=== PATIENT | male | born 1995 | race Caucasian/White ===

== ENCOUNTER 2019-01-01 16:16 | Emergency (ER) | payer SELFPAY ==
[~2019-01-01] VITALS: Ht 177.8 cm; Wt 81.6 kg
[2019-01-01] MEDS: NS IV 1000 ML 1,000 ML IV SCH ×4 (16:55→18:23)
[2019-01-01] MEDS ORDERED: inSUlin (REGULAR) HUMAN 1 UNIT/0.01 ML (CHARGE PER UNIT) SC ONE (17:00)
--- NOTE | 2019-01-01 17:01 | ED General ---
General Chief Complaint: Glucose Problems Stated Complaint: HIGH BLOOD SUGAR Nursing Triage Note: Patient c/o high glucose level. Reported that his grandparents were checking their blood sugar so he thought he would check his and his reading was in the 500s. He denies any symptoms or pain at this time. Nursing Sepsis Screen: No Definite Risk Source of Information: Patient (NELLIE CUEVAS MD) History of Present Illness Date Seen by Provider: Jan 01, 2019 Time Seen by Provider: 16:30 Initial Comments Patient is alcoholic and drinks shots of Everclear daily. Estimates a gallon but this seems high. Nevertheless, past few weeks he has had fatigue, low energy, polyuria, polydypsia, and progressive weakness. He does not see physician and takes no medications. He has had counseling for alcoholism and has finally 'just accepted' that this is his lot. His mother had diabetes type two and also was alcoholic. His random blood sugar is 490. I have discussed options with him. He has insurance but declines admission. I have told him that I will try to replete fluids and do basic labs, but that he will need to minimally follow-up in outpatient clinics to properly manage this disease. He says he already is familiar with the complications of diabetes seen in his mother. Severity: Moderate Modifying Factors: improves with Other Associated Systoms: Loss of Appetite, Malaise, Weakness (NELLIE SANTIZO MD) Allergies and Home Medications Allergies Coded Allergies: No Known Drug Allergies (Unverified , 01/01/19) Patient Home Medication List Home Medication List Reviewed: Yes (ARCENIO NICE DO) Review of Systems Review of Systems Constitutional: malaise, weakness, weight loss EENTM: see HPI, blurred vision Respiratory: no symptoms reported; No short of breath, No stridor Cardiovascular: no symptoms reported Gastrointestinal: no symptoms reported Genitourinary: frequency Musculoskeletal: see HPI Skin: no symptoms reported Psychiatric/Neurological: See HPI, Emotional Problems, Weakness, Other Hematologic/Lymphatic: No Symptoms Reported Immunological/Allergic: no symptoms reported (NELLIE CUEVAS MD) All Other Systems Reviewed Negative Unless Noted: Yes (NELLIE CUEVAS MD) Past [id number]-Jufxme Hx Patient Social History Recent Foreign Travel: No Contact w/Someone Who Travel: No Recent Infectious Disease Expo: No (NELLIE CUEVAS MD) Physical Exam Vital Signs Vital Signs - First Documented 01/01/19 16:20 Temp 98.7 Pulse 116 Resp 18 B/P (MAP) 125/87 (100) Pulse Ox 97 O2 Delivery Room Air (ARCENIO NICE ) Vital Signs Capillary Refill : Less Than 3 Seconds (NELLIE CUEVAS MD) Height, Weight, BMI Height: 5'10.00" Weight: 180lbs. oz. [id number]; BMI Method:Stated General Appearance: No Apparent Distress HEENT: PERRL/EOMI, Moist Mucous Membranes Neck: Full Range of Motion, Normal Inspection Respiratory: No Accessory Muscle Use, No Respiratory Distress Cardiovascular: Regular Rate, Rhythm, No Edema Extremity: Normal Range of Motion, Non Tender Neurologic/Psychiatric: Normal Mood/Affect Skin: Normal Color, Warm/Dry Lymphatic: No Adenopathy (NELLIE CUEVAS MD) General Appearance: No Apparent Distress, WD/WN Respiratory: No Respiratory Distress Cardiovascular: Regular Rate, Rhythm, Tachycardia Rectal: Deferred Neurologic/Psychiatric: Alert, Oriented x3, No Motor/Sensory Deficits Skin: Warm/Dry (ARCENIO NICE DO) Progress/Results/Core Measures Suspected Sepsis Recent Fever Within 48 Hours: No Infection Criteria Present: None New/Unexplained Altered Menta: No Sepsis Screen: No Definite Risk SIRS Temperature:98.7 Pulse: 116 Respiratory Rate: 18 Blood Pressure 125 /87 Mean: 100 (NELLIE CUEVAS MD) Results/Orders Lab Results Laboratory Tests Test 01/01/19 16:00 01/01/19 16:24 01/01/19 16:40 01/01/19 18:18 Range/Units Urine Color YELLOW Urine Clarity CLEAR Urine pH 6.0 5-9 Urine Specific [place] <=1.005 1.016-1.022 Urine Protein NEGATIVE NEGATIVE Urine Glucose (UA) 3+ H NEGATIVE Urine Ketones 1+ H NEGATIVE Urine Nitrite NEGATIVE NEGATIVE Urine Bilirubin NEGATIVE NEGATIVE Urine Urobilinogen 0.2 NORMAL MG/DL Urine Leukocyte Esterase NEGATIVE NEGATIVE Urine RBC (Auto) NEGATIVE NEGATIVE Urine RBC NONE /HPF Urine WBC 0-2 /HPF Urine Squamous Epithelial Cells NONE /HPF Urine Crystals NONE /LPF Urine Bacteria NEGATIVE /HPF Urine Casts NONE /LPF Urine Mucus NEGATIVE /LPF Urine Culture Indicated NO Urine Opiates Screen NEGATIVE NEGATIVE Urine Oxycodone Screen NEGATIVE NEGATIVE Urine Methadone Screen NEGATIVE NEGATIVE Urine Propoxyphene Screen NEGATIVE NEGATIVE Urine Barbiturates Screen NEGATIVE NEGATIVE Ur Tricyclic Antidepressants Screen NEGATIVE NEGATIVE Urine Phencyclidine Screen NEGATIVE NEGATIVE Urine Amphetamines Screen NEGATIVE NEGATIVE Urine Methamphetamines Screen NEGATIVE NEGATIVE Urine Benzodiazepines Screen NEGATIVE NEGATIVE Urine Cocaine Screen NEGATIVE NEGATIVE Urine Cannabinoids Screen NEGATIVE NEGATIVE Glucometer 489 *H 464 *H 70-110 MG/DL White Blood Count 7.9 4.3-11.0 10^3/uL Red Blood Count 5.26 4.35-5.85 10^6/uL Hemoglobin 16.8 13.3-17.7 G/DL Hematocrit 45 40-54 % Mean Corpuscular Volume 86 80-99 FL Mean Corpuscular Hemoglobin 32 25-34 PG Mean Corpuscular Hemoglobin Concent 37 H 32-36 G/DL Red Cell Distribution Width 11.5 10.0-14.5 % Platelet Count 340 130-400 10^3/uL Mean Platelet Volume 10.4 7.4-10.4 FL Neutrophils (%) (Auto) 65 42-75 % Lymphocytes (%) (Auto) 27 12-44 % Monocytes (%) (Auto) 5 0-12 % Eosinophils (%) (Auto) 2 0-10 % Basophils (%) (Auto) 1 0-10 % Neutrophils # (Auto) 5.1 1.8-7.8 X 10^3 Lymphocytes # (Auto) 2.2 1.0-4.0 X 10^3 Monocytes # (Auto) 0.4 0.0-1.0 X 10^3 Eosinophils # (Auto) 0.2 0.0-0.3 10^3/uL Basophils # (Auto) 0.1 0.0-0.1 10^3/uL Neutrophils % (Manual) 67 % Lymphocytes % (Manual) 23 % Monocytes % (Manual) 3 % Eosinophils % (Manual) 1 % Band Neutrophils 3 % Atypical Lymphocytes 3 % Blood Morphology Comment NORMAL Sodium Level 133 L 135-145 MMOL/L Potassium Level 3.5 L 3.6-5.0 MMOL/L Chloride Level 90 L 98-107 MMOL/L Carbon Dioxide Level 20 L 21-32 MMOL/L Anion Gap 23 H 5-14 MMOL/L Blood Urea Nitrogen 6 L 7-18 MG/DL Creatinine 0.62 0.60-1.30 MG/DL Estimat Glomerular Filtration Rate > 60 BUN/Creatinine Ratio 10 Glucose Level 560 *H 70-105 MG/DL Calcium Level 9.6 8.5-10.1 MG/DL Corrected Calcium 8.5-10.1 MG/DL Total Bilirubin 0.8 0.1-1.0 MG/DL Aspartate Amino Transf (AST/SGOT) 22 5-34 U/L Alanine Aminotransferase (ALT/SGPT) 34 0-55 U/L Alkaline Phosphatase 135 40-136 U/L Total Protein 8.1 6.4-8.2 GM/DL Albumin 4.7 H 3.2-4.5 GM/DL Lipase 21 8-78 U/L Serum Alcohol 99 H <10 MG/DL (ARCENIO NICE DO) My Orders Orders - ARCENIO NICE DO Potassium Chloride (Tablet) (K Dur Table (01/01/19 18:15) Accucheck Stat ONCE (01/01/19 18:13) Ns Iv 1000 Ml (Sodium Chloride 0.9%) (01/01/19 18:15) Beta Hydroxybutyrate (01/01/19 18:31) (ARCENIO NICE DO) Medications Given in ED Current Medications Medications Dose Ordered Sig/Ele Route Start Time Stop Time Status Last Admin Dose Admin Insulin Human Regular 10 unit ONCE ONCE SC 01/01/19 17:00 01/01/19 17:01 DC 01/01/19 17:20 10 UNIT Potassium Chloride 20 meq ONCE ONCE PO 01/01/19 18:15 01/01/19 18:16 UNV 01/01/19 18:29 20 MEQ (ARCENIO NICE DO) Vital Signs/I&O 01/01/19 01/01/19 16:20 18:50 Temp 98.7 99.2 Pulse 116 88 Resp 18 20 B/P (MAP) 125/87 (100) 140/86 (104) Pulse Ox 97 99 O2 Delivery Room Air Room Air (ARCENIO NICE DO) Vital Signs/I&O Capillary Refill : Less Than 3 Seconds (NELLIE CUEVAS MD) Blood Pressure Mean: 100 Progress Note : Progress Note Patient refused admission to both Dr. Thompson and myself. Stressed the importance of follow up PRANAV. I believe he is accompanied by his Mother who is under the care of Dr. Gallardo and she is going to make sure he follows up with him PRANAV. Patient actively drinking a regular Sprite when I entered the room. Clear he has no knowledge regarding diabetes. (ARCENIO NICE DO) ECG Initial ECG Impression Date: Jan 01, 2019 Initial ECG Rate: 97 Initial ECG Rhythm: Normal Sinus Initial ECG Intervals: Normal Initial ECG Impression: Normal Initial ECG Comparisson: No Previous ECG Available (ARCENIO NICE DO) Departure Impression Primary Impression: Newly diagnosed diabetes Additional Impression: Alcoholic by hx Disposition: HOME, SELF-CARE Condition: Stable Departure-Patient Inst. Decision time for Depature: 18:35 (ARCENIO NICE DO) Patient Instructions: Diabetes and Diet Add. Discharge Instructions: CALL DR. GALLARDO'S OFFICE FIRST THING IN THE AM, 01/02, TO ARRANGE FOLLOW UP CARE AND EVALUATION PRANAV REGARDING YOUR DIABETES. All discharge instructions reviewed with patient and/or family. Voiced understanding. NELLIE CUEVAS MD Jan 01, 2019 17:01 ARCENIO NICE DO Jan 01, 2019 18:37
[2019-01-01 17:12] LABS: ALANINE AMINOTRANSFERASE 34 U/L (0-55); ALKALINE PHOSPHATASE 135 U/L (40-136); BILIRUBIN,TOTAL 0.8 MG/DL (0.1-1.0); BUN/CREATININE RATIO 10; CALCIUM 9.6 MG/DL (8.5-10.1); CARBON DIOXIDE 20 MMOL/L (21-32); CHLORIDE 90 MMOL/L (98-107); CREATININE SERUM 0.62 MG/DL (0.60-1.30); GFR ESTIMATED > 60; POTASSIUM 3.5 MMOL/L (3.6-5.0); SODIUM 133 MMOL/L (135-145)
[2019-01-01 17:13] LABS: ALBUMIN 4.7 GM/DL (3.2-4.5); LIPASE 21 U/L (8-78); TOTAL PROTEIN 8.1 GM/DL (6.4-8.2)
[2019-01-01 17:14] LABS: GLUCOSE 560 MG/DL (70-105)
[2019-01-01 17:15] LABS: AMPHETAMINE SCREEN, URINE NEGATIVE (NEGATIVE); BARBITURATE SCREEN URINE NEGATIVE (NEGATIVE); BENZODIAZEPINES SCREEN URINE NEGATIVE (NEGATIVE); CANNABINOID SCREEN, URINE NEGATIVE (NEGATIVE); CLARITY,URINE CLEAR; COCAINE SCREEN URINE NEGATIVE (NEGATIVE); COLOR,URINE YELLOW; METHADONE STAT NEGATIVE (NEGATIVE); METHAMPHETAMINE SCREEN URINE S NEGATIVE (NEGATIVE); OPIATE SCREEN URINE NEGATIVE (NEGATIVE); OXYCODONE STAT NEGATIVE (NEGATIVE); PROPOXYPHENE STAT NEGATIVE (NEGATIVE); TRICYCLIC ANTIDEPRESSANTS SCRE NEGATIVE (NEGATIVE)
[2019-01-01 17:16] LABS: BACTERIA,URINE NEGATIVE /HPF; BILIRUBIN,URINE NEGATIVE (NEGATIVE); GLUCOSE, URINE (UA) 3+ (NEGATIVE); KETONES,URINE 1+ (NEGATIVE); LEUKOCYTE ESTERASE ,URINE NEGATIVE (NEGATIVE); NITRITE,URINE NEGATIVE (NEGATIVE); PROTEIN,URINE NEGATIVE (NEGATIVE); UROBILINOGEN,URINE 0.2 MG/DL (NORMAL); WBC,URINE 0-2 /HPF
[2019-01-01 17:18] LABS: HEMATOCRIT 45 % (40-54); HEMOGLOBIN 16.8 G/DL (13.3-17.7); MEAN CORPUSCULAR HEMOGLOBIN 32 PG (25-34); MEAN CORPUSCULAR HGB CONC 37 G/DL (32-36); MEAN CORPUSCULAR VOLUME 86 FL (80-99); MEAN PLATELET VOLUME 10.4 FL (7.4-10.4); PLATELET COUNT 340 10^3/uL (130-400); RED CELL DISTRIBUTION WIDTH 11.5 % (10.0-14.5); WHITE BLOOD COUNT 7.9 10^3/uL (4.3-11.0)
[2019-01-01 17:19] LABS: BASOPHILS # (AUTO) 0.1 10^3/uL (0.0-0.1); BASOPHILS % (AUTO) 1 % (0-10); EOSINOPHILS # (AUTO) 0.2 10^3/uL (0.0-0.3); EOSINOPHILS % (AUTO) 2 % (0-10); LYMPHOCYTES # (AUTO) 2.2 X 10^3 (1.0-4.0); LYMPHOCYTES % (AUTO) 27 % (12-44); MONOCYTES # (AUTO) 0.4 X 10^3 (0.0-1.0); MONOCYTES % (AUTO) 5 % (0-12); NEUTROPHILS # (AUTO) 5.1 X 10^3 (1.8-7.8); NEUTROPHILS % (AUTO) 65 % (42-75)
[2019-01-01 17:20] LABS: ATYPICAL LYMPHOCYTES 3 %; BAND NEUTROPHILS 3 %; EOSINOPHILS % (MANUAL) 1 %; MONOCYTES % (MANUAL) 3 %; NEUTROPHILS % (MANUAL) 67 %; RBC MORPH NORMAL
[2019-01-01 17:21] LABS: LYMPHOCYTES % (MANUAL) 23 %
[2019-01-01] MEDS ORDERED: KCL 20 MEQ TAB (K-DUR) PO ONE ×2 (18:15→18:20)
[2019-01-01] MEDS ORDERED: NS IV 1000 ML 1,000 ML IV SCH (18:15)
[2019-01-01 18:50] VITALS: BP 140/86
== END 2019-01-01 18:50 | disposition home or self-care (01) ==
LOC: ER FS 16:18
DX: E11.9 Type 2 diabetes mellitus without complications (principal); F10.20 Alcohol dependence, uncomplicated; Y90.4 Blood alcohol level of 80-99 mg/100 ml
CPT/HCPCS: 36415; 80053; 80306; 80320; 81000; 82010; 82962; 83036; 83690; 85007; 85027; 93005; 96360; 96372